=== PATIENT | female | born 1990 | race Caucasian/White ===

== ENCOUNTER → 2018-04-08 14:55 | Outpatient (CLI) | payer OTHER, SELFPAY ==
--- NOTE | 2018-04-08 | IMM_PTH ---
PATIENT: ITZ BOLDEN LOC: [facility] U#:[id number] AGE/SX: 35/F ROOM: RE04/08/[address]: Dr. Rhett Silva MD : 1990 BED: DIS: SPEC #: [id number] RECD: 04/12/18 14:18 STATUS: SHUKRI REJuan Carlos #: [id number] NATA: 04/08/18 00:[address]: Rhett Silva DEPT: IMMUNOHISTOCHEMISTRY RECD BY: Daniela Mendes Tissues: A - Uterine cervix, NOS B - Uterine cervix, NOS Procedures: p16 (initial) KI-67 (add) PHYSICIAN & [place] [id number] SPECIMEN INFORMATION: Tissue Source: A - Cervical biopsy 10 o'clock, B - Cervical biopsy 2 o'clock Clinical Info: HGSIL Specimen Number: [id number] A & B CPT code: 61697 x2, 05113 x2 METHODOLOGY: Deparaffinized sections of prefer/formalin-fixed tissue or PAP/DQ stained slides are incubated with monoclonal/polyclonal antibodies/oligonucleotide probes. Localization is made via biotin free immunoperoxidase method. Appropriate controls are performed and reacted as expected. Results on target cell population are indicated in the following table: RESULTS: ANTIBODY / CLONE RESULT Block A P16 (E6H4) positive, focal and patchy Ki-67 (30-9) positive, low Block B P16 (E6H4) positive, focal and patchy Ki-67 (30-9) positive, low These tests were developed and their performance characteristics determined by [facility]. They may not have been cleared or approved by the U.S. Food and Drug Administration. The FDA has determined that such clearance or approval is not necessary. INTERPRETATION: A. Cervical biopsy 10 o'clock: Focal changes suspicious for HPV cytopathic effects. B. Cervical biopsy 2 o'clock: Focal changes suspicious for HPV cytopathic effects. SJ:petra 04/13/18
--- NOTE | 2018-04-08 | CER_PTH ---
PATIENT: ITZ BOLDEN LOC: [facility] U#:[id number] AGE/SX: 35/F ROOM: RE04/08/[address]: Dr. Rehtt Silva MD : 1990 BED: DIS: SPEC #: [id number] RECD: 04/08/18 17:59 STATUS: SHUKRI MARCEL #: [id number] NATA: 04/08/18 00:[address]: Rhett Silva DEPT: SURGICAL PATHOLOGY RECD BY: Favian Raman Tissues: A - Uterine cervix, NOS B - Uterine cervix, NOS C - Endocervical Procedures: Surgery Specimen Level IV HEADER OPERATION: Colposcopy with biopsy PRE-OP DIAGNOSIS: HGSIL TISSUE SUBMITTED: A - Cervical biopsy 10 o'clock, B - Cervical biopsy 2 o'clock, C - ECC MICROSCOPIC DIAGNOSIS A. Cervix, 10 o'clock, biopsy: Focal changes suspicious for HPV cytopathic effects. Focal chronic inflammation and squamous metaplasia. See comment. B. Cervix, 2 o'clock, biopsy: Focal changes suspicious for HPV cytopathic effects. Focal chronic inflammation and squamous metaplasia. See comment. C. ECC: Scant mucoid tissue and rare desquamated benign endocervical epithelial cells, insufficient for further evaluation. SJ:rg 04/12/18 COMMENT A & B. Results from immunohistochemistry ([id number]) for surrogate HPV marker (p16) will be reported separately. MICROSCOPIC DESCRIPTION Slides are reviewed. GROSS DESCRIPTION A - Received in fixative is one container labeled with the patient's name and designated cervical biopsy 10 o'clock. The specimen consists of one irregular fragment of light vela soft tissue that measures 0.3 x 0.3 x 0.1 cm. The specimen is totally submitted in one cassette. B - Received in fixative is one container labeled with the patient's name and designated cervical biopsy 2 o'clock. The specimen consists of one irregular fragment of light vela soft tissue that measures 0.3 x 0.3 x 0.1 cm. The specimen is totally submitted in one cassette. C - Received in fixative is one container labeled with the patient's name and designated ECC. The specimen consists of a scant fragment of vela mucoid tissue measuring <0.2 cm in greatest dimension. The entire specimen is submitted in one cassette. / [place] 04/11/18 TC: CPT: 29921 x3
== END ==
PROVIDERS: Visit Provider Obstetrics & Gynecology
DX: R87.613 High grade squamous intraepithelial lesion on cytologic smear of cervix (HGSIL) (principal)
CPT/HCPCS: 88305; 88341; 88342

== ENCOUNTER 2021-07-23 16:09 | Outpatient (CLI) | payer OTHER, SELFPAY | END 2021-07-23 23:59 | disposition home or self-care (01) | PROVIDERS: Visit Provider Obstetrics & Gynecology | DX: N77.1 Vaginitis, vulvitis and vulvovaginitis in diseases classified elsewhere (principal) ==

== ENCOUNTER 2021-07-27 10:34 | Emergency (ER) | payer OTHER, SELFPAY ==
[2021-07-27 10:36] VITALS: BP 140/93; PULSE 92; RESP 17; TEMP 35.9; O2SAT 100; BMI 19.3
--- NOTE | 2021-07-27 11:07 | EDS_ITS ---
HPI <ALONZO Velazco - Last Filed: 07/27/21 12:42> HPI - Female History of Present Illness Chief Complaint: Vag Bleeding Narrative Narrative: 31-year-old female presents with abnormal vaginal bleeding. She states she finished her normal menstrual cycle 2 weeks ago and a few days after that she developed spotting and then heavier bleeding. This had improved prior to seeing her CONSTRUCTION WORKER on 07/23. They did a pelvic exam and swabs and urine test which are pending. The last few days she had spotting and just required a panty liner but today the bleeding became heavier with some clots and she felt lightheaded. She is also had mild abdominal cramping and low back pain over the last few days. No fever, chills, nausea, vomiting. She takes no medications and stopped oral control 6 months ago. No surgical history. No dysuria or frequency. PFSH <ALONZO Velazco - Last Filed: 07/27/21 12:42> [facility] Medical History no medical history Home Medications NK 07/27/21 [History Last Taken Unknown] Allergy/AdvReac Type Severity Reaction Status Date / Time No Known Allergies Allergy Verified 07/27/21 10:35 Social History Smoking Status: Never smoker ROS <ALONZO Velazco - Last Filed: 07/27/21 12:42> ROS ED ROS Narrative Constitutional: Negative for fever, chills, malaise. Eyes: Negative for visual change. ENT: Negative for sore throat, ear pain, rhinorrhea. CVS: Negative for palpitations, chest pain, syncope. Respiratory: Negative for shortness of breath, cough, orthopnea. GI: Positive for abdominal pain. Negative for nausea, vomiting, diarrhea, constipation, melena, hematochezia. : Negative for dysuria, hematuria or frequency. Neuro: Negative for headache, motor/sensory dysfunction. Skin: Negative for rash, abscess, or wound. Heme: Negative for easy bruising, bleeding, lymphadenopathy. EXAM <ALONZO Velazco - Last Filed: 07/27/21 12:42> Physical Exam Narrative Exam Narrative: CONST: Patient sitting in no acute distress. EYES: Normal inspection. NECK: Normal inspection. RESP: No respiratory distress, CTAB. CVS: Regular rate and rhythm, no murmur, no gallop. ABD: Soft and nontender, no guarding or rebound, nondistended. Back: Normal inspection, no CVA tenderness. SKIN: Color normal, no rash, warm, dry, intact. EXTREMITIES: Normal appearance, no pedal edema. NEURO: Oriented x4. PSYCH: Normal affect. Const Vital Signs: 07/27/21 10:36 07/27/21 11:25 07/27/21 12:36 Temperature 96.6 F L Temperature Source Temporal Pulse Rate 92 Respiratory Rate 17 16 16 Blood Pressure 140/93 H Blood Pressure Mean 108 Pulse Ox 100 Oxygen Delivery Method Room Air <Dr. Vicky Lara MD - Last Filed: 07/27/21 13:04> Physical Exam Const Vital Signs: 07/27/21 10:36 07/27/21 11:25 07/27/21 12:36 Temperature 96.6 F L Temperature Source Temporal Pulse Rate 92 Respiratory Rate 17 16 16 Blood Pressure 140/93 H Blood Pressure Mean 108 Pulse Ox 100 Oxygen Delivery Method Room Air MDM <ALONZO Velazco - Last Filed: 07/27/21 12:42> [facility] Narrative Medical decision making narrative: Patient presents with abnormal uterine bleeding. She appears well and nontoxic. Afebrile and vital signs are within normal limits. Her abdomen is soft and nontender with no guarding or rebound. Pelvic exam was deferred as she had one this week with her CONSTRUCTION WORKER. Basic labs show normal hemoglobin, mild hypokalemia at 3.4, otherwise unremarkable. Urinalysis has hematuria but no infection. test is negative. She was treated with IV Toradol and oral potassium. I spoke with on-call CONSTRUCTION WORKER, Dr. Torre, at her group who advised her to call tomorrow for an appointment for repeat visit and outpatient ultrasound. Patient was counseled to take [id number] pain medication as needed and signs and symptoms that would warrant return to the ER. She was agreeable with this plan and discharged in stable condition. 1. Abnormal uterine bleeding 2. Abdominal pain 3. Hypokalemia Lab Data Labs: Laboratory Results - last 24 hr 07/27/21 07/27/21 07/27/21 11:20 11:20 11:29 WBC 3.8 L RBC 4.13 L Hgb 13.6 Hct 38.1 MCV 92.3 MCH 32.9 H MCHC 35.7 RDW Std Deviation 39.9 RDW Coeff of Tabitha 11.8 Plt Count 170 MPV 9.3 Immature Gran % (Auto) 0.000 Neut % (Auto) 68.7 Lymph % (Auto) 22.8 [place] % (Auto) 6.6 Eos % (Auto) 1.1 Baso % (Auto) 0.8 Absolute Neuts (auto) 2.6 Absolute Lymphs (auto) 0.86 Nucleated RBC % 0 Sodium 140 Potassium 3.4 L Chloride 106 Carbon Dioxide 28.0 Anion Gap 6 BUN 12 Creatinine 0.99 Estim Creat Clear Calc 73.86 Est GFR (MDRD) Af Amer 85 Est GFR (MDRD) Non-Af 71 BUN/Creatinine Ratio 12.2 Glucose 109 H Calcium 9.1 Urine Color Straw Urine Clarity Clear Urine pH 7.0 Ur Specific [place] 1.005 Urine Protein Negative Urine Glucose (UA) Normal Urine Ketones Negative Urine Occult Blood 250 H Urine Nitrite Negative Urine Bilirubin Negative Urine Urobilinogen Normal Ur Leukocyte Esterase Negative Urine RBC 0 SEEN Urine WBC 0 SEEN Ur Squamous Epith Cells 0-5 SEEN Urine Bacteria 0 SEEN Urine Mucus 0 SEEN Urine Test Negative <Dr. Vicky Lara MD - Last Filed: 07/27/21 13:04> [facility] Lab Data Labs: Laboratory Results - last 24 hr 07/27/21 07/27/21 07/27/21 11:20 11:20 11:29 WBC 3.8 L RBC 4.13 L Hgb 13.6 Hct 38.1 MCV 92.3 MCH 32.9 H MCHC 35.7 RDW Std Deviation 39.9 RDW Coeff of Tabitha 11.8 Plt Count 170 MPV 9.3 Immature Gran % (Auto) 0.000 Neut % (Auto) 68.7 Lymph % (Auto) 22.8 [place] % (Auto) 6.6 Eos % (Auto) 1.1 Baso % (Auto) 0.8 Absolute Neuts (auto) 2.6 Absolute Lymphs (auto) 0.86 Nucleated RBC % 0 Sodium 140 Potassium 3.4 L Chloride 106 Carbon Dioxide 28.0 Anion Gap 6 BUN 12 Creatinine 0.99 Estim Creat Clear Calc 73.86 Est GFR (MDRD) Af Amer 85 Est GFR (MDRD) Non-Af 71 BUN/Creatinine Ratio 12.2 Glucose 109 H Calcium 9.1 Urine Color Straw Urine Clarity Clear Urine pH 7.0 Ur Specific [place] 1.005 Urine Protein Negative Urine Glucose (UA) Normal Urine Ketones Negative Urine Occult Blood 250 H Urine Nitrite Negative Urine Bilirubin Negative Urine Urobilinogen Normal Ur Leukocyte Esterase Negative Urine RBC 0 SEEN Urine WBC 0 SEEN Ur Squamous Epith Cells 0-5 SEEN Urine Bacteria 0 SEEN Urine Mucus 0 SEEN Urine Test Negative Treatment and Re-Evaluation Comments:: Patient seen and evaluated with surgical technologist. Patient independently interviewed and examined. Patient presents with irregular vaginal bleeding. She has had on and off bleeding for the last 2 weeks. She was seen by her CONSTRUCTION WORKER this past Wednesday. She does note that she recently stopped taking oral contraceptive pills. Physical exam Patient lying in bed no acute distress. Head and neck examination normal. Heart is regular rate and rhythm. Lung sounds are clear. Abdomen is soft with no focal tenderness. Lab work reviewed and unremarkable. Hemoglobin is still within the normal range. Patient will be discharged to follow-up with CONSTRUCTION WORKER. I believe her abnormal bleeding is likely secondary to her hormone fluctuations with recently stopping her control pills. We will contact patient's [employer] and update patient if there are any other instructions. Discharge Plan Triage Chief Complaint: Vag Bleeding ED Provider: Nellie Welsh Dx/Rx/DC Orders Clinical Impression: Abnormal uterine and vaginal bleeding, unspecified Instructions: Understanding Uterine Bleeding Prescriptions: No Action NK RF: 0 Primary Care Provider: Care Physician,No Primary Referrals: Care Physician,No Primary [Primary Care Provider] - Activity Restrictions/Additional Instructions: I spoke with your CONSTRUCTION WORKER office and they would like you to call tomorrow and they will set you up for another visit and an ultrasound. Today your blood levels looked normal. There is no urine infection and your test is negative. You are ok to follow up with CONSTRUCTION WORKER but if you develop new or worsening symptoms such as passing out, chest pain, shortness of breath, severe abdominal pain please come back to the ER Disposition Disposition: Home, Self Care Discharge Date/Time: 07/27/21 12:39
[2021-07-27 11:25] VITALS: RESP 16
[2021-07-27 11:29] LABS: Absolute Lymphocyte Count 0.86 X10^3/uL (0.83-4.51); Absolute Neutrophil Count 2.6 X10^3/uL (2.0-7.7); Basophil# 0.03 X10^3/uL; Basophil% 0.8 % (0-1); Eosinophil# 0.04 X10^3/uL; Eosinophils% 1.1 % (0-5); Hematocrit 38.1 % (37-47); Hemoglobin 13.6 g/dL (12.0-15.0); Lymphocyte # 0.86 X10^3/ul (0.83-4.51); Lymphocyte % 22.8 % (19-41); Mean Corp Hgb Conc 35.7 g/dL (32-36); Mean Corpuscular Hgb 32.9 pg (27.0-32.0); Mean Corpuscular Volume 92.3 fL (81-99); Mean Platelet Vol. 9.3 fl (6.2-12.0); Monocyte# 0.25 X10^3/uL; Monocyte% 6.6 % (0-10); NRBC Flagged by Analyzer 0 % (0-5); Neutrophil # 2.59 X10^3/uL (2.7-7.7); Neutrophil % 68.7 % (47-70); Platelet Count 170 K/mm3 (150-450); RBC Distribution Width CV 11.8 % (11.6-14.6); RBC Distribution Width SD 39.9 fl (35.1-43.9); Red Blood Count 4.13 M/mm3 (4.2-5.4); White Blood Count 3.8 K/mm3 (4.4-11.0)
[2021-07-27 11:35] LABS: Bacteria 0 SEEN /hpf (None Seen); Mucous, Urine 0 SEEN /hpf (<or=2+); Red Blood Cells-Urine 0 SEEN /hpf (0-5); White Blood Cells 0 SEEN /hpf (0-5)
[2021-07-27 11:38] LABS: Color, Urine Straw (Yellow); Glucose, Dipstick Normal (Normal); Ketone-Dipstick Negative (Negative); Leukocyte Esterase-Dipstick Negative /ul (Negative); Nitrite-Dipstick Negative (Negative); Occult Blood-Urine 250 /ul (Negative); Protein-Dipstick Negative (Negative); Specific Gravity, Urine 1.005 (1.002-1.030); Urine Bilirubin Dipstick Negative (Negative); Urine Clarity Clear (Clear); Urine Urobilinogen Normal (Normal)
[2021-07-27 11:43] LABS: Anion Gap 6 (5-15); BUN 12 mg/dL (7-18); BUN/Creat Ratio 12.2 RATIO (10-20); Calcium,Total 9.1 mg/dL (8.5-10.1); Chloride 106 mmol/L (98-107); Creatinine, Serum 0.99 mg/dL (0.55-1.02); EST Glomerular Filtration Rate 71 mL/min (>60); Est Glom Filt Rate - Afr Amer 85 mL/min (>60); Estimated Creatinine Clearance 73.86 ml/min; Glucose 109 mg/dL (74-106); Potassium 3.4 mmol/L (3.5-5.1); Sodium Level 140 mmol/L (136-145)
[2021-07-27 11:50] LABS: Squamous Epithelial Cells - UA 0-5 SEEN /hpf (5-10)
[2021-07-27 11:51] LABS: Internal QC Validated? YES +Cl - CLEAR BKGD; Pregnancy, Urine Negative Negative
[2021-07-27] MEDS: Potassium Chloride Oral Tablet 20 MEQ PO (12:22)
[2021-07-27] MEDS: Ketorolac 15 MG/ML Vial IV (12:22)
[2021-07-27 12:36] VITALS: RESP 16
== END 2021-07-27 12:39 | disposition home or self-care (01) ==
PROVIDERS: Emergency Provider Physician Assistant; Visit Provider Physician Assistant
DX: N93.9 Abnormal uterine and vaginal bleeding, unspecified (principal); E87.6 Hypokalemia; R31.9 Hematuria, unspecified; R10.9 Unspecified abdominal pain
CPT/HCPCS: 80048; 81001; 81025; 85025; 96374; 99283; A4216

== ENCOUNTER → 2022-02-13 | Outpatient (CLI) | payer OTHER, SELFPAY ==
[2022-02-13 10:54] LABS: Absolute Lymphocyte Count 1.11 X10^3/uL (0.83-4.51); Absolute Neutrophil Count 4.3 X10^3/uL (2.0-7.7); Basophil# 0.03 X10^3/uL; Basophil% 0.5 % (0-1); Eosinophil# 0.05 X10^3/uL; Eosinophils% 0.9 % (0-5); Hematocrit 39.4 % (37-47); Hemoglobin 13.7 g/dL (12.0-15.0); Lymphocyte # 1.11 X10^3/ul (0.83-4.51); Mean Corp Hgb Conc 34.8 g/dL (32-36); Mean Corpuscular Hgb 32.2 pg (27.0-32.0); Mean Corpuscular Volume 92.5 fL (81-99); Mean Platelet Vol. 9.1 fl (6.2-12.0); Monocyte# 0.37 X10^3/uL; Monocyte% 6.3 % (0-10); NRBC Flagged by Analyzer 0 % (0-5); Neutrophil # 4.25 X10^3/uL (2.7-7.7); Platelet Count 205 K/mm3 (150-450); RBC Distribution Width CV 11.9 % (11.6-14.6); RBC Distribution Width SD 39.9 fl (35.1-43.9); Red Blood Count 4.26 M/mm3 (4.2-5.4); White Blood Count 5.8 K/mm3 (4.4-11.0)
[2022-02-13 12:43] LABS: HIV - WCH Non-Reactive (Nonreactive); Hepatitis B Surface Antigen Non-Reactive (Nonreactive); Hepatitis C Antibody Non-Reactive (Nonreactive); Rubella IgG Reactive (Nonreactive); Syphilis Antibodies Non-reactive
[2022-02-14 07:34] LABS: V-Zoster IgG (Immunity) 3056 index (Immune >165)
[2022-02-16 22:06] LABS: Chlamydia By Nucleic Acid AMP Negative (Negative)
[2022-02-18 15:28] LABS: Gonococcus By Nucleic Acid AMP Negative (Negative)
[2022-02-19 17:17] LABS: HPV Reflexed? NOT INDICATED
== END | disposition home or self-care (01) ==
LOC: WOBLAB 10:16
PROVIDERS: Visit Provider Student in an Organized Health Care Education/Training Program
DX: Z34.81 Encounter for supervision of other normal pregnancy, first trimester (principal); Z11.3 Encounter for screening for infections with a predominantly sexual mode of transmission; Z12.4 Encounter for screening for malignant neoplasm of cervix
CPT/HCPCS: 36415; 85025; 86703; 86762; 86780; 86787; 86803; 87086; 87088; 87340; 87491; 87591; 88175; G0145

== ENCOUNTER → 2022-05-29 | Outpatient (CLI) | payer OTHER, SELFPAY ==
[2022-05-29 12:55] LABS: Absolute Lymphocyte Count 1.12 X10^3/uL (0.83-4.51); Absolute Neutrophil Count 5.6 X10^3/uL (2.0-7.7); Basophil# 0.03 X10^3/uL; Basophil% 0.4 % (0-1); Eosinophil# 0.06 X10^3/uL; Eosinophils% 0.8 % (0-5); Hematocrit 33.9 % (37-47); Hemoglobin 11.6 g/dL (12.0-15.0); Lymphocyte # 1.12 X10^3/ul (0.83-4.51); Lymphocyte % 15.2 % (19-41); Mean Corp Hgb Conc 34.2 g/dL (32-36); Mean Corpuscular Hgb 33.5 pg (27.0-32.0); Monocyte% 6.8 % (0-10); NRBC Flagged by Analyzer 0 % (0-5); Neutrophil # 5.58 X10^3/uL (2.7-7.7); Neutrophil % 75.8 % (47-70); Platelet Count 215 K/mm3 (150-450); RBC Distribution Width CV 13.1 % (11.6-14.6); RBC Distribution Width SD 46.3 fl (35.1-43.9); Red Blood Count 3.46 M/mm3 (4.2-5.4); White Blood Count 7.4 K/mm3 (4.4-11.0)
[2022-05-29 13:07] LABS: Glucose Challenge Gest 1H 50g 95 mg/dL (70-140)
== END | disposition home or self-care (01) ==
PROVIDERS: Visit Provider Student in an Organized Health Care Education/Training Program
DX: Z34.82 Encounter for supervision of other normal pregnancy, second trimester (principal)
CPT/HCPCS: 36415; 82950; 85025

== ENCOUNTER → 2022-08-21 | Outpatient (CLI) | payer OTHER, SELFPAY ==
[2022-08-21 10:58] LABS: Absolute Lymphocyte Count 1.59 X10^3/uL (0.83-4.51); Basophil# 0.06 X10^3/uL; Basophil% 0.6 % (0-1); Eosinophil# 0.12 X10^3/uL; Eosinophils% 1.3 % (0-5); Hematocrit 36.4 % (37-47); Hemoglobin 12.5 g/dL (12.0-15.0); Lymphocyte # 1.59 X10^3/ul (0.83-4.51); Lymphocyte % 16.8 % (19-41); Mean Corp Hgb Conc 34.3 g/dL (32-36); Mean Corpuscular Hgb 33.4 pg (27.0-32.0); Mean Corpuscular Volume 97.3 fL (81-99); Mean Platelet Vol. 9.2 fl (6.2-12.0); Monocyte# 0.63 X10^3/uL; Monocyte% 6.7 % (0-10); NRBC Flagged by Analyzer 0 % (0-5); Neutrophil # 7.01 X10^3/uL (2.7-7.7); Platelet Count 238 K/mm3 (150-450); RBC Distribution Width CV 12.6 % (11.6-14.6); RBC Distribution Width SD 44.2 fl (35.1-43.9); Red Blood Count 3.74 M/mm3 (4.2-5.4); White Blood Count 9.5 K/mm3 (4.4-11.0)
[2022-08-21 11:24] LABS: Syphilis Antibodies Non-reactive
== END | disposition home or self-care (01) ==
LOC: WOBLAB 09:41
PROVIDERS: Visit Provider Student in an Organized Health Care Education/Training Program
DX: Z36.85 Encounter for antenatal screening for Streptococcus B (principal); Z34.83 Encounter for supervision of other normal pregnancy, third trimester
CPT/HCPCS: 36415; 85025; 86780; 87081

== ENCOUNTER 2022-09-21 22:20 | Outpatient (CLI) | payer OTHER, SELFPAY ==
[2022-09-21 22:33] VITALS: PULSE 83; O2SAT 100
[2022-09-21 22:39] VITALS: BMI 26.3
[2022-09-21 22:41] VITALS: BP 120/78; PULSE 75; TEMP 36.3
[2022-09-21 23:16] VITALS: PULSE 86; O2SAT 96
--- NOTE | 2022-09-22 12:27 | OB.TRI.NOTE ---
HPI - General General Date of Service: 09/21/22 HPI Narrative ITZ BOLDEN, is a 32 F who presents with contractions PFSH PFSH Home Medications docosahexaenoic acid 200 mg capsule ( DHA) mg PO 09/21/22 [History Last Taken Unknown] Allergy/AdvReac Type Severity Reaction Status Date / Time No Known Allergies Allergy Verified 09/21/22 22:38 Social History Smoking Status: Never smoker NST FHR Rate Baby A Baseline: 120 Variability:: Moderate Accelerations:: 15 x 15 Decelerations:: None NST Reactive:: Yes Uterine Activity:: Every 3 minutes Assessment & Plan (1) : PLAN: Patient arrived to triage with contractions. Called by nursing that cervix was checked x2 with no cervical change from previous office check. Patient overall comfortable per nursing. Okay to discharge home and follow-up with schedule appointment today
== END 2022-09-22 01:05 | disposition home or self-care (01) ==
LOC: WPOUT 22:25 → WP 22:26
PROVIDERS: Referring Provider Obstetrics & Gynecology; Visit Provider Obstetrics & Gynecology
DX: O47.9 False labor, unspecified (principal); Z3A.00 Weeks of gestation of pregnancy not specified
CPT/HCPCS: 59025; 59050; 99221; G0378

== ENCOUNTER 2022-09-24 09:30 | Inpatient (IN) | payer OTHER, SELFPAY ==
[2022-09-24] VITALS (28 sets, daily range): BP systolic 107–136; BP diastolic 57–82; PULSE 38–124; RESP 16; TEMP 36.1–36.6; O2SAT 69–100; BMI 25.8
[2022-09-24] MEDS: LACTATED RINGERS 500 ML 999 ML IV ×2 (09:55→13:35)
[2022-09-24] MEDS: Lactated Ringers 1,000 ML 200 ML IV (09:55)
[2022-09-24 10:05] LABS: Absolute Lymphocyte Count 2.04 X10^3/uL (0.83-4.51); Absolute Neutrophil Count 11.8 X10^3/uL (2.0-7.7); Basophil# 0.07 X10^3/uL; Basophil% 0.5 % (0-1); Eosinophil# 0.07 X10^3/uL; Eosinophils% 0.5 % (0-5); Hematocrit 38.1 % (37-47); Hemoglobin 13.4 g/dL (12.0-15.0); Lymphocyte # 2.04 X10^3/ul (0.83-4.51); Lymphocyte % 13.5 % (19-41); Mean Corp Hgb Conc 35.2 g/dL (32-36); Mean Corpuscular Hgb 33.5 pg (27.0-32.0); Mean Corpuscular Volume 95.3 fL (81-99); Mean Platelet Vol. 9.5 fl (6.2-12.0); NRBC Flagged by Analyzer 0 % (0-5); Neutrophil # 11.82 X10^3/uL (2.7-7.7); Neutrophil % 78.2 % (47-70); Platelet Count 274 K/mm3 (150-450); RBC Distribution Width CV 12.3 % (11.6-14.6); RBC Distribution Width SD 42.5 fl (35.1-43.9); White Blood Count 15.1 K/mm3 (4.4-11.0)
[2022-09-24] MEDS: fentaNYL-bupivacaine (epidural) 100 ML BAG EPIDURAL ×2 (10:18→15:07)
[2022-09-24 10:52] LABS: Syphilis Antibodies Non-reactive
--- NOTE | 2022-09-24 12:01 | PCM.HP.BLA ---
History and Physical Date of Admission: 09/24/22 Chief complaint: Contractions History present illness: 32-year-old G1, P0 at 41 weeks and 1 day with TONIO 09/16/2022 arrives with contractions. Denies headache, visual change, chest pain, shortness of breath, nausea vomit, right upper quadrant pain. Patient states good movement. Obstetric history: G1: Current Past medical history: None Medications: vitamin Past surgical history: Tonsillectomy Allergies: No known drug Social history: Former smoker, denies alcohol or drug use Family history: Denies history DVT or PE Review of systems: Besides above pertinent positives a full review of systems was performed and found to be negative Physical exam: Vitals: Temperature 97.0 ?F General: Normal-appearing no acute distress HEENT: Normocephalic/atraumatic no cervical lymphadenopathy Cardiac/respiratory: No use accessory muscles, nonlabored breathing Abdomen: Soft, nontender, gravid Extremities: No peripheral edema normal peripheral pulses Psych: Normal affect normal demeanor nonpressured speech Labs: White blood cell count 15.1 hemoglobin 13.4 hematocrit 38.1% platelets 274. RPR nonreactive. Blood type B+ antibody negative Assessment and plan: 32-year-old G1, P0 at 41 weeks and 1 day arrives in labor. Called by nursing with cervical exam 6 cm and uncomfortable with contractions. Repeat conversation with nursing patient comfortable with epidural. Admit labor and delivery CEFM GBS negative Routine orders
[2022-09-24] MEDS: Lactated Ringers 1,000 ML 150 ML IV (15:11)
[2022-09-24] MEDS: Oxytocin 10 UNITS/ML Vial IM (17:23)
[2022-09-24] MEDS: Methylergonovine 0.2 MG/ML Ampul IM (17:23)
[2022-09-24] MEDS: Oxytocin 15 Units/NS 250ml 15 UNITS/250 ML IV.SOLN 83 UNITS IV (17:23)
--- NOTE | 2022-09-24 17:41 | OP.PCM_ITS ---
Vaginal Delivery Findings Description of Procedure: Preop diagnosis: Term, nonreassuring heart tones Postop diagnosis: Term, nonreassuring heart tones Procedure: Vacuum-assisted vaginal delivery Surgeon: Ajay Torre MD EBL: 350 cc Anesthesia: Epidural Complications: None Findings: Female infant in vertex position LOP +2 station. Apgars 8/9. Second- degree midline perineal laceration noted Consent: Patient arrived in labor subsequently to complete dilation and pushed for 3 hours upon examination noted to be complete dilation +2 station LOP. Pelvis felt to be adequate for vaginal delivery. Patient comfortable with epidural. Patient had 2 prolonged decelerations now recovered but minimal variability. Educated patient on findings and discussed options which include expectant management versus operative vacuum delivery versus section. Educated patient on the risk benefits alternatives. Patient elects for vacuum-assisted vaginal delivery. Understands maternal risks of [place] tears and risks of shoulder dystocia and cephalhematoma. States understanding wish to proceed. Procedure: Vaginal examination was again performed with LOP +2 station. Pelvis felt adequate for vaginal delivery and patient was comfortable with epidural. Rush catheter was present. Kiwi vacuum was applied over the sagittal suture about 3 cm in from the posterior fontanelle. Vacuum pressure was applied. Edge of the cup was evaluated carefully for maternal tissue, no maternal tissue was noted to be entrapped under the cup. With maternal pushing the right hand applied gentle horizontal traction along the pelvic access in coordination with uterine contractions and maternal pushing. Progressive descent was noted with each pull. Handed the vacuum device was gradually elevated when the perineum bulged. The cup did not pop off. The cup was removed after the head was delivered. Head and shoulders were delivered with ease. Placenta was delivered via cord traction and fundal massage intact. IV oxytocin and IM oxytocin were given per protocol. Prophylactic IM Methergine was given prophylactically with vacuum- assisted vaginal delivery. Cervix and vaginal wall were thoroughly examined. Second-degree midline perineal laceration was noted and repaired in typical fashion. Infant was examined after delivery no visible lacerations or bruises were found.
[2022-09-24] MEDS: Acetaminophen 500 MG Tablet 1000 MG PO (18:49)
[2022-09-24] MEDS: 0.9% Saline Lock 10 ML Syringe IV (21:35)
[2022-09-25] VITALS (8 sets, daily range): BP systolic 116–122; BP diastolic 67–75; PULSE 71–92; RESP 16–18; TEMP 36.3–36.7; O2SAT 97–98
[2022-09-25] MEDS: Acetaminophen 500 MG Tablet 1000 MG PO ×4 (00:53→21:20)
[2022-09-25] MEDS: Ibuprofen 600 MG Tablet PO ×3 (02:28→17:06)
--- NOTE | 2022-09-25 08:32 | PN.OBGYN_ITS ---
Subjective Subjective Feeling well. Lochia minimal. Working on breast-feeding. Objective Data Objective Data Vital Signs: Vital Signs Temp Pulse Resp BP Pulse Ox O2 Del Method 97.5 F L 71 16 119/72 98 Room Air 09/25/22 03:40 09/25/22 03:40 09/25/22 03:40 09/25/22 03:40 09/25/22 03:40 09/25/22 03:40 Oxygen Delivery Method Room Air Weight: 74.843 kg Body Mass Index (BMI) 25.8 Intake & Output: Intake and Output for Last 24 Hours 09/23/22 09/24/22 09/25/22 23:59 23:59 23:59 Intake Total 3197.5 / 3197.5 Output Total 800 / 800 450 / 450 Balance 2397.5 / 2397.5 -450 / -450 Lab / Micro Data Attestation: I reviewed the patient's lab results. Result Diagrams: 09/24/22 09:35 Labs: Laboratory Results - last 24 hr 09/24/22 09:35: WBC 15.1 H, RBC 4.00 L, Hgb 13.4, Hct 38.1, MCV 95.3, MCH 33.5 H , MCHC 35.2, RDW Std Deviation 42.5, RDW Coeff of Tabitha 12.3, Plt Count 274, MPV 9.5, Immature Gran % (Auto) 1.300 H, Neut % (Auto) 78.2 H, Lymph % (Auto) 13.5 L , [place] % (Auto) 6.0, Eos % (Auto) 0.5, Baso % (Auto) 0.5, Absolute Neuts (auto) 11.8 H, Absolute Lymphs (auto) 2.04, Nucleated RBC % 0 09/24/22 09:35: Blood Type B POSITIVE, Antibody Screen NEGATIVE 09/24/22 09:35: Syphilis Total Ab Non-reactive Physical Exam Const alert, oriented x3 and no apparent distress HEENT normocephalic Head and Scalp: atraumatic Neck full ROM Resp normal respiratory effort Cardio regular rate GI normal to inspection, nondistended, normoactive bowel sounds GI Narrative: Uterus 2 cm below umbilicus Back/Spine normal ROM Extremity normal to inspection Extremity Narrative: Minimal pedal edema Neuro no focal motor deficits and no sensory deficits noted Psych mental status grossly normal and affect normal Assessment & Plan (1) Vaginal delivery: PLAN: day 1 status post vacuum-assisted vaginal delivery. Doing well without concerns. Discharge home tomorrow.
[2022-09-26 02:23] VITALS: BP 104/55; PULSE 75; RESP 20
[2022-09-26 02:24] VITALS: BP 104/55; PULSE 75
[2022-09-26] MEDS: Ibuprofen 600 MG Tablet PO (06:15)
[2022-09-26 08:39] VITALS: BP 114/68; PULSE 85; RESP 16; TEMP 36.6; O2SAT 97
[2022-09-26 08:42] VITALS: BP 114/68; PULSE 85
--- NOTE | 2022-09-26 09:58 | PCM.PN.OB ---
Subjective Subjective Doing well. Lochia minimal. Working on breast-feeding and pumping. Objective Data Objective Data Vital Signs: Vital Signs Temp Pulse Resp BP Pulse Ox O2 Del Method 97.8 F 85 16 114/68 97 Room Air 09/26/22 08:39 09/26/22 08:42 09/26/22 08:39 09/26/22 08:42 09/26/22 08:39 09/26/22 08:39 Oxygen Delivery Method Room Air Weight: 74.843 kg Body Mass Index (BMI) 25.8 Intake & Output: Intake and Output for Last 24 Hours 09/24/22 09/25/22 09/26/22 23:59 23:59 23:59 Intake Total 3197.5 / 3197.5 Output Total 800 / 800 450 / 450 Balance 2397.5 / 2397.5 -450 / -450 Lab / Micro Data Result Diagrams: 09/24/22 09:35 Physical Exam Const alert, oriented x3 and no apparent distress HEENT normocephalic Head and Scalp: atraumatic Neck full ROM Resp normal respiratory effort Cardio regular rate GI normal to inspection, nondistended, normoactive bowel sounds GI Narrative: Uterus 2 cm below umbilicus Back/Spine normal ROM Extremity normal to inspection Extremity Narrative: Minimal pedal edema Neuro no focal motor deficits and no sensory deficits noted Psych mental status grossly normal and affect normal Assessment & Plan (1) Vaginal delivery: PLAN: day 2 status post . Home today in stable condition. Has appointment with on Wednesday.
--- NOTE | 2022-09-26 09:59 | DCINST_ITS ---
Discharge Instructions Diet Discharge Diet: No restrictions Activity Discharge Activity: Return to Normal Activity and May Shower May resume sexual activity in: 4-6 weeks Weight Bearing Status: Weight bearing as tolerated Lifting Restrictions: No greater than 25 pounds Dressing / Incision Call your doctor if you observe: Fever of 101 or Higher, Change in Color, Inability to urinate, Using more than 1 pad per hour, Shortness of breath, Dizziness, Swelling in the ankles, Chest pain and Calf discomfort Follow Up Care Please Follow Up With: Crystal Torre DO When: 6-week visit Test Results: Test results from this visit will be discussed in further detail at your follow- up appointment, if applicable. Discharge Plan Admission Admit Date/Time: 09/24/22 09:30 Primary Reason for Your Visit: Vaginal delivery Attending Provider: Ajay Torre Primary Care Provider: Care Physician,Tiana Primary Discharge Orders/Prescriptions Prescriptions: No Action DHA 200 mg Capsule 1 mg PO DAILY Referrals / Follow Up: Care Physician,No Primary [Primary Care Provider] - Disposition Disposition (needs filled in before D/C Order can be placed): Home, Self Care
--- NOTE | 2022-09-26 10:00 | PCM.DC.SUM ---
Providers Date of Admission: 09/24/22 Date of Discharge: 09/26/22 Primary Care Physician: Tiana Primary Care Phys Reason For Visit: VAGINAL DELIVERY Diagnosis Discharge Diagnosis (1) Vaginal delivery: Status: Acute Code(s): O80 - Encounter for full-term uncomplicated delivery Plan: day 2 status post VAVD. Home today in stable condition. Has appointment with on Wednesday. Medications at Discharge Home Medications docosahexaenoic acid 200 mg capsule ( DHA) 1 mg PO DAILY preg 09/21/22 Hospital Course Operations None Summary of Care Provided Hospital Course: Admitted in labor. Progressed. Vacuum-assisted vaginal delivery. Stable for discharge day 2. Physical Exam Const alert, oriented x3 and no apparent distress HEENT normocephalic Head and Scalp: atraumatic Neck full ROM Resp normal respiratory effort Cardio regular rate GI normal to inspection, nondistended, normoactive bowel sounds GI Narrative: Uterus 2 cm below umbilicus Back/Spine normal ROM Extremity normal to inspection Extremity Narrative: Minimal pedal edema Neuro no focal motor deficits and no sensory deficits noted Psych mental status grossly normal and affect normal Weight / BMI Weight Weight: 74.843 kg Body Mass Index (BMI) 25.8 ABG / Lab / Microbiology Data Result Diagrams: 09/24/22 09:35 D/C Instructions Discharge Diet: No restrictions May resume sexual activity in: 4-6 weeks Weight Bearing Status: Weight bearing as tolerated Call your doctor if you observe: Fever of 101 or Higher, Change in Color, Inability to urinate, Using more than 1 pad per hour, Shortness of breath, Dizziness, Swelling in the ankles, Chest pain and Calf discomfort Please Follow Up With: Crystal Torre DO When: 6-week visit Meaningful Use Info Meaningful Use Diagnoses (Choose all that apply): None applicable Discharge Plan Admission Admit Date/Time: 09/24/22 09:30 Primary Reason for Your Visit: Vaginal delivery Attending Provider: Ajay Torre Primary Care Provider: Care PhysicianTiana Primary Discharge Orders/Prescriptions Prescriptions: No Action DHA 200 mg Capsule 1 mg PO DAILY Referrals / Follow Up: Care Physician,Tiana Primary [Primary Care Provider] - Disposition Disposition (needs filled in before D/C Order can be placed): Home, Self Care
[2022-09-26 12:10] VITALS: BP 120/59; PULSE 80; RESP 16; TEMP 36.4; O2SAT 98
[2022-09-26 12:11] VITALS: BP 120/59; PULSE 81
--- NOTE | 2022-09-30 08:13 | NURSING ---
Follow up phone call questions discussed during patients outpatient visit with Spencer 09/29/2022. Pt denies complications or concerns , bleeding is minimal denies any problem symptoms, is and help given. Satisfied with her care with .
== END 2022-09-26 13:20 | disposition home or self-care (01) | DRG 807 ==
LOC: WPOUT 09:33 → WP 17:22
PROVIDERS: Admitting Provider Obstetrics & Gynecology; Referring Provider Obstetrics & Gynecology; Visit Provider Obstetrics & Gynecology
DX: O76 Abnormality in fetal heart rate and rhythm complicating labor and delivery (principal); Z37.0 Single live birth; O48.0 Post-term pregnancy; Z3A.41 41 weeks gestation of pregnancy; O70.1 Second degree perineal laceration during delivery; Z87.891 Personal history of nicotine dependence
CPT/HCPCS: 59025; 59050; 85025; 86780; 86850; 86900; 86901; 99221; J7120; A4216; G0378

== ENCOUNTER → 2022-10-09 | Outpatient (CLI) | payer OTHER, SELFPAY | END | disposition home or self-care (01) | LOC: LABSPEC 13:37 | PROVIDERS: Visit Provider Student in an Organized Health Care Education/Training Program | DX: N39.0 Urinary tract infection, site not specified (principal) | CPT/HCPCS: 87086 ==

== ENCOUNTER → 2023-03-12 | Outpatient (CLI) | payer OTHER, SELFPAY ==
[2023-03-12 11:05] LABS: Hematocrit 38.8 % (37-47); Hemoglobin 13.3 g/dL (12.0-15.0); Mean Corp Hgb Conc 34.3 g/dL (32-36); Mean Corpuscular Hgb 31.8 pg (27.0-32.0); Mean Corpuscular Volume 92.8 fL (81-99); Mean Platelet Vol. 9.5 fl (6.2-12.0); Platelet Count 201 K/mm3 (150-450); RBC Distribution Width CV 12.5 % (11.6-14.6); RBC Distribution Width SD 42.5 fl (35.1-43.9); Red Blood Count 4.18 M/mm3 (4.2-5.4); White Blood Count 4.2 K/mm3 (4.4-11.0)
[2023-03-12 11:30] LABS: Vitamin D,25 Hydroxy 42.3 ng/mL
[2023-03-12 11:44] LABS: T4 Free Direct 0.89 ng/dL (0.76-1.46); Thyroid Stim Hormone (TSH) 1.39 uIU/mL (0.358-3.74)
== END | disposition home or self-care (01) ==
LOC: LAB 10:19
PROVIDERS: PCP Family Medicine; Referring Provider Student in an Organized Health Care Education/Training Program; Visit Provider Student in an Organized Health Care Education/Training Program
DX: Z01.419 Encounter for gynecological examination (general) (routine) without abnormal findings (principal)
CPT/HCPCS: 36415; 82306; 84439; 84443; 85027

== ENCOUNTER → 2023-04-22 | Outpatient (CLI) | payer OTHER, SELFPAY ==
[2023-04-22 17:36] LABS: Absolute Lymphocyte Count 1.39 X10^3/uL (0.83-4.51); Absolute Neutrophil Count 2.6 X10^3/uL (2.0-7.7); Basophil# 0.04 X10^3/uL; Basophil% 0.9 % (0-1); Eosinophil# 0.07 X10^3/uL; Eosinophils% 1.6 % (0-5); Hematocrit 38.8 % (37-47); Hemoglobin 12.8 g/dL (12.0-15.0); Lymphocyte # 1.39 X10^3/ul (0.83-4.51); Lymphocyte % 31.3 % (19-41); Mean Corpuscular Hgb 30.8 pg (27.0-32.0); Mean Corpuscular Volume 93.3 fL (81-99); Mean Platelet Vol. 9.6 fl (6.2-12.0); Monocyte% 6.8 % (0-10); NRBC Flagged by Analyzer 0 % (0-5); Neutrophil # 2.63 X10^3/uL (2.7-7.7); Neutrophil % 59.2 % (47-70); Platelet Count 209 K/mm3 (150-450); RBC Distribution Width CV 11.9 % (11.6-14.6); RBC Distribution Width SD 41.1 fl (35.1-43.9); Red Blood Count 4.16 M/mm3 (4.2-5.4); White Blood Count 4.4 K/mm3 (4.4-11.0)
[2023-04-22 18:03] LABS: ALB/GLOB Ratio 1.2 RATIO (0.9-2.4); AST(SGOT) 12 U/L (15-37); Alanine Aminotransfer ALT/SGPT 29 U/L (13-56); Albumin, Serum 4.3 g/dL (3.2-5.0); Alkaline Phosphatase 73 U/L (45-117); Anion Gap 4 (5-15); BUN 15 mg/dL (7-18); BUN/Creat Ratio 16.3 RATIO (10-20); CRP < 2.90 mg/L (0.0-3.0); Calcium,Total 9.1 mg/dL (8.5-10.1); Chloride 107 mmol/L (98-107); Creatinine, Serum 0.92 mg/dL (0.55-1.02); EST Glomerular Filtration Rate 76 mL/min (>60); Est Glom Filt Rate - Afr Amer 92 mL/min (>60); Globulin 3.5 g/dL (2.2-4.2); Glucose 89 mg/dL (74-106); Potassium 3.4 mmol/L (3.5-5.1); Protein, Total 7.8 g/dL (6.4-8.2); Sodium Level 139 mmol/L (136-145)
[2023-04-22 18:05] LABS: Erythrocyte Sedimentation Rate 1 mm/hr (0-30)
== END | disposition home or self-care (01) ==
LOC: MFPLAB 16:38
PROVIDERS: PCP Family Medicine; Visit Provider Family Medicine
DX: R10.84 Generalized abdominal pain (principal)
CPT/HCPCS: 36415; 80053; 85025; 85652; 86140

== ENCOUNTER → 2025-04-19 | Outpatient (CLI) | payer OTHER, SELFPAY ==
[2025-04-19 12:29] LABS: Hematocrit 35.7 % (37-47); Hemoglobin 12.2 g/dL (12.0-15.0); Immature Granulocytes Count 0.030 X10^3/uL (0.0-0.0); Mean Corp Hgb Conc 34.2 g/dL (32-36); Mean Corpuscular Volume 91.8 fL (81-99); Mean Platelet Vol. 9.4 fl (6.2-12.0); NRBC Flagged by Analyzer 0 % (0-5); Platelet Count 181 K/mm3 (150-450); RBC Distribution Width CV 12.4 % (11.6-14.6); RBC Distribution Width SD 40.7 fl (35.1-43.9); Red Blood Count 3.89 M/mm3 (4.2-5.4); White Blood Count 7.5 K/mm3 (4.4-11.0)
[2025-04-19 13:09] LABS: HIV Nonreactive (Nonreactive); Hepatitis B Surface Antigen Nonreactive (Nonreactive); Hepatitis C Antibody Nonreactive (Nonreactive); Syphilis Antibodies Nonreactive (Nonreactive)
[2025-04-21 06:08] LABS: Chlamydia By Nucleic Acid AMP Negative (Negative); Gonococcus By Nucleic Acid AMP Negative (Negative)
== END | disposition home or self-care (01) ==
PROVIDERS: Visit Provider Advanced Practice Midwife
DX: O09.90 Supervision of high risk pregnancy, unspecified, unspecified trimester (principal); Z3A.00 Weeks of gestation of pregnancy not specified
CPT/HCPCS: 36415; 85025; 86703; 86762; 86780; 86803; 86850; 86900; 86901; 87086; 87340; 87491; 87591